=== PATIENT | female | born 1965 ===

== ENCOUNTER → 2018-01-08 | Outpatient (CLI) | payer OTHER ==
--- NOTE | 2018-01-10 15:04 | RADIOLOGY IMAGING REPORT ---
FACILITY: [facility] PATIENT NAME: ALEXANDRO VAZQUEZ : [id number] MR: [id number] V: [id number] EXAM DATE: ORDERING PHYSICIAN: ROLLY LINDSAY TECHNOLOGIST: Annette Hughes PROCEDURE:BILATERAL DIGITAL SCREENING MAMMOGRAM WITH CAD ASSISTED INTERPRETATION & 3D TOMOSYNTHESIS COMPARISON:Prior mammograms 11/03/16, 01/31/16, 01/27/15. INDICATIONS:SCREENING FINDINGS: Extremely dense heterogeneous fibroglandular tissue is seen throughout the breasts. The parenchymal pattern has remained stable allowing for difference in mammographic technique & patient positioning. There is no evidence of malignant appearing mass, malignant appearing calcifications or other secondary sign of malignancy in either breast. DIAGNOSTIC CATEGORY 2--BENIGN FINDING. RECOMMENDATIONS: ROUTINE MAMMOGRAM AND CLINICAL EVALUATION. IMPRESSION: BIRADS 2: Benign finding No significant abnormality is seen. Dictated by: Gail Mosquera M.D. on 01/10/2018 at 11:27 Transcribed by: DANTE on 01/10/2018 at 11:51 Approved by: Gail Mosquera M.D. on 01/10/2018 at 15:03 [facility]
== END ==
LOC: MAMO 02:27
PROVIDERS: ATTEND Family Medicine
DX: Z12.31 Encounter for screening mammogram for malignant neoplasm of breast (principal)
CPT/HCPCS: 77063; 77067